=== PATIENT | male | born 1940 | race Caucasian/White ===

== ENCOUNTER 2017-05-22 10:21 | Day surgery (SDC) | payer MEDICARE, BC ==
[2017-05-21 12:19] LABS: BASOPHILS % (AUTO) 0.8 % (0-1); EOSINOPHILS # (AUTO) 0.2 X10'3 (0-0.9); HEMATOCRIT 40.7 % (42.0-52.0); LYMPHOCYTES # (AUTO) 1.8 X10'3 (1.1-4.8); LYMPHOCYTES % (AUTO) 29.2 % (21-51); MEAN CORPUSCULAR HEMOGLOBIN 32.3 PG (27.0-31.0); MEAN CORPUSCULAR HGB CONC 34.5 % (33.0-36.5); MEAN CORPUSCULAR VOLUME 93.6 FL (78-98); MEAN PLATELET VOLUME 6.9 FL (7.4-10.4); MONOCYTES # (AUTO) 0.5 X10'3 (0-0.9); NEUTROPHILS # (AUTO) 3.6 X10'3 (1.8-7.7); PLATELET COUNT 180 X10'3 (140-440); RED BLOOD COUNT 4.34 X10'6 (4.70-6.10); RED CELL DISTRIBUTION WIDTH 15.1 % (11.5-14.5); WHITE BLOOD COUNT 6.2 X10'3 (4.5-11.0)
[2017-05-21 12:36] LABS: ALANINE AMINOTRANSFERASE 24 U/L (12-78); ALBUMIN 3.7 G/DL (3.4-5.0); ALBUMIN/GLOBULIN RATIO 0.8 (1.1-1.5); ALKALINE PHOSPHATASE 41 IU/L (46-116); ANION GAP 8 (8-16); ASPARTATE AMINO TRANSFERASE 20 U/L (10-37); BILIRUBIN,TOTAL 1.1 MG/DL (0.1-1.0); BLOOD UREA NITROGEN 24 MG/DL (7-18); BUN/CREATININE RATIO 13.6 (5.4-32.0); CALCIUM 9.3 MG/DL (8.5-10.1); CHLORIDE 104 MMOL/L (99-107); CREATININE 1.77 MG/DL (0.60-1.10); GLUCOSE 136 MG/DL (70-104); POTASSIUM 4.1 MMOL/L (3.5-5.1); SODIUM 142 MMOL/L (135-145); TOTAL CARBON DIOXIDE 29.7 MMOL/L (24-32); TOTAL PROTEIN 8.4 G/DL (6.4-8.2); eGFR 37 ML/MIN
[2017-05-21 12:44] LABS: INR 1.4 INR; PARTIAL THROMBOPLASTIN TIME 37 SECONDS (22-32); PROTHROMBIN TIME 14.7 SECONDS (9.0-12.0)
[2017-05-22] VITALS (15 sets, daily range): BP systolic 77–155; BP diastolic 42–75
[~2017-05-22] VITALS: Ht 167.6 cm; Wt 87.8 kg
[2017-05-22] MEDS ORDERED: normal saline 1000ml 1,000 ML IV SCH (10:50)
[2017-05-22] MEDS ORDERED: diphenhydrAMINE 25mg capsule PO PRN (10:50)
[2017-05-22] MEDS ORDERED: LORazepam 0.5 MG tablet PO PRN (10:50)
[2017-05-22] MEDS ORDERED: LIDOcaine 1% (10mg/ml) 2ml vial ONE (11:09)
[2017-05-22] MEDS ORDERED: SIMV20TA5 PO (12:28)
[2017-05-22] MEDS ORDERED: FURO40TA4 PO (12:28)
[2017-05-22] MEDS ORDERED: GLUC1CAP33 PO (12:28)
[2017-05-22] MEDS ORDERED: VITA400C67 PO (12:28)
[2017-05-22] MEDS ORDERED: MAGN400C PO (12:28)
[2017-05-22] MEDS ORDERED: CHOL10002 PO (12:28)
[2017-05-22] MEDS ORDERED: CARV25TA PO (12:28)
[2017-05-22] MEDS ORDERED: FLO0.4C PO (12:28)
[2017-05-22] MEDS ORDERED: LIRA0.6P2 SUBCUT (12:28)
[2017-05-22] MEDS ORDERED: IBAN150T PO (12:28)
[2017-05-22] MEDS ORDERED: COU1T PO (12:28)
[2017-05-22] MEDS ORDERED: ASCO500C15 PO (12:28)
[2017-05-22] MEDS ORDERED: SPIR25TA3 PO (12:28)
[2017-05-22] MEDS ORDERED: FISH12002 PO (12:28)
[2017-05-22] MEDS ORDERED: MULT-955 PO (12:28)
[2017-05-22] MEDS ORDERED: LANTUS SQ (12:28)
[2017-05-22] MEDS ORDERED: CALC-93 PO (12:28)
[2017-05-22] MEDS ORDERED: GLIM4TAB79 PO (12:31)
[2017-05-22] MEDS ORDERED: LIDOcaine 1%/PF (10mg/ml) 5ml vial ONE (13:18)
[2017-05-22] MEDS ORDERED: iohexol 350 MG/ML 50ML vial IV ONE (13:18)
[2017-05-22] MEDS ORDERED: fentaNYL/PF 50MCG/1 ML 2ML syringe ONE (13:18)
[2017-05-22] MEDS ORDERED: heparin 1,000unit/ml 10ml vial 10 ML ONE (13:18)
[2017-05-22] MEDS ORDERED: iohexol 350MG/ML 100ml bottle IV ONE (13:18)
[2017-05-22] MEDS ORDERED: midazolam 2 mg/2 ml injection ONE (13:18)
[2017-05-22] MEDS ORDERED: nitroGLYCERIN-Tridil 50MG/D5W 250 ML IV ONE (13:19)
[2017-05-22] MEDS ORDERED: furosemide 20 MG/2 ML vial IV ONE (15:55)
[2017-05-22] MEDS ORDERED: sodium bicarbonate (8.4%) inj. 150 MEQ in sodium chloride 0.45% 1,000 ML IV ONE (15:55)
[2017-05-22] MEDS ORDERED: acetylcysteine 200 MG/ml 4ml vial PO ONE (15:55)
[2017-05-22 16:01] LABS: ISTAT HGB ART 12.9 g/dl (14.0-18.0); ISTAT Hct ART 38 %PCV (42-52); ISTAT O2 SATURATION ARTERIAL 96 % (95-98); ISTAT SOURCE ART
[2017-05-22 16:06] LABS: ISTAT Hct MIX 38 %PCV (42-52); ISTAT O2 SATURATION MIX VENOUS 59 % (60-80); ISTAT SOURCE MIX
[2017-05-22] MEDS ORDERED: calcium carbonate 500mg chew tablet PO ONE (17:55)
== END 2017-05-22 19:00 | disposition home or self-care (01) ==
LOC: SSTAY O 10:21
PROVIDERS: ATTEND Internal Medicine Cardiovascular Disease
DX: I25.118 Atherosclerotic heart disease of native coronary artery with other forms of angina pectoris (principal); E11.9 Type 2 diabetes mellitus without complications; I10 Essential (primary) hypertension; E78.5 Hyperlipidemia, unspecified; Z88.8 Allergy status to other drugs, medicaments and biological substances; Z79.82 Long term (current) use of aspirin; Z79.01 Long term (current) use of anticoagulants; Z95.1 Presence of aortocoronary bypass graft; Z98.890 Other specified postprocedural states; Z87.891 Personal history of nicotine dependence
CPT/HCPCS: 36415; 80053; 82803; 82948; 85014; 85025; 85610; 85730; 93005; 93461; 93567; 99152; 99153; A6257; A6449; C1769; J1644; J1940; J2001; J2250; J3010; J3490; J7030; Q0163; Q9967; A4620

== ENCOUNTER 2019-05-14 22:15 | Emergency (ER) | payer MEDICARE, BC ==
[~2019-05-14] VITALS: Ht 172.7 cm; Wt 93.2 kg
[~2019-05-14 22:15] MED LIST: ASCO500C15 PO; CALC-93 PO; CARV25TA PO; CHOL10002 PO; COU1T PO; FISH12002 PO; FLO0.4C PO; FURO40TA4 PO; GLIM4TAB7 PO; GLUC1CAP33 PO; IBAN150T16 PO; LANTUS SQ; LIRA0.6P2 SUBCUT; MAGN400C PO; MULT-955 PO; SIMV-42 PO; SPIR25TA5 PO; VITA400C67 PO
[2019-05-15 01:39] VITALS: BP 102/58
--- NOTE | 2019-05-15 01:44 | NUR ---
GAVE PATIENT WATER. OFFERED SOMETHING TO EAT, HE DECLINED
== END 2019-05-15 02:10 | disposition home or self-care (01) ==
LOC: ER 22:15
DX: J18.9 Pneumonia, unspecified organism (principal); F03.90 Unspecified dementia, unspecified severity, without behavioral disturbance, psychotic disturbance, mood disturbance, and anxiety; Z88.5 Allergy status to narcotic agent; Z79.4 Long term (current) use of insulin; Z79.01 Long term (current) use of anticoagulants; Z79.899 Other long term (current) drug therapy
CPT/HCPCS: 71045; 99284